=== PATIENT | male | born 1985 ===

== ENCOUNTER 2022-09-23 10:51 | Emergency (ER) | payer OTHER ==
[2022-09-23] MEDS ORDERED: Ketorolac 30 MG/ML SDV ONE (11:26)
[2022-09-23] MEDS ORDERED: Ketorolac 30 MG/ML SDV IVPUSH ONE (11:41)
[2022-09-23] MEDS ORDERED: Aspirin 81 MG Tab.Chew PO ONE (11:41)
[2022-09-23] MEDS ORDERED: Nitroglycerin 0.4 MG Tab.SL SL ONE (11:42)
[2022-09-23] MEDS ORDERED: fentaNYL 100 MCG/2 ML SDV IVPUSH ONE (11:45)
[2022-09-23 11:50] LABS: TROPONIN I HIGH SENSITIVITY 7.3 pg/ml (<=60.4)
== END 2022-09-23 14:50 | disposition home or self-care (01) ==
LOC: LB.ED 10:51
DX: R07.9 Chest pain, unspecified (principal); Z88.0 Allergy status to penicillin
CPT/HCPCS: 36415; 71250; 80053; 83690; 84484; 85025; 93005; 96374; 99285; A9270; J1885